=== PATIENT | female | born 1960 | race Asian ===

== ENCOUNTER 2020-12-18 22:41 | Emergency (ER) | payer OTHER ==
[~2020-12-18] VITALS: Ht 160 cm; Wt 54.4 kg
[2020-12-18 23:00] VITALS: BP_SYST 142
[2020-12-18] MEDS ORDERED: ASPIRIN 81 MG TAB.CHEW PO ONE (23:15)
[2020-12-18] MEDS ORDERED: NITROGLYCERIN 1 INCH (GM) OINT. TD ONE (23:15)
[2020-12-18 23:20] LABS: HEMOGLOBIN 13.7 g/dL (12.0-16.0); MEAN CORPUSCULAR VOLUME 99 fL (79.0-98.0)
[2020-12-18 23:34] LABS: BASOPHILS % (AUTO) 0.5 % (0.0-2.0); EOSINOPHILS # (AUTO) 0.1 K/uL (0.0-0.4); EOSINOPHILS % (AUTO) 1.9 % (0.0-4.0); HEMATOCRIT 40.1 % (36-48); LYMPHOCYTES # (AUTO) 2.3 K/uL (1.0-5.5); LYMPHOCYTES % (AUTO) 37.8 % (20.5-51.5); MEAN CORPUSCULAR HEMOGLOBIN 34 pg (27-31); MEAN CORPUSCULAR HGB CONC 34 % (32-36); MONOCYTES # (AUTO) 0.4 K/uL (0.0-1.0); MONOCYTES % (AUTO) 7.5 % (1.7-9.3); NEUTROPHILS # (AUTO) 3.1 K/uL (1.8-7.7); NEUTROPHILS % (AUTO) 52.3 % (40.0-70.0); PLATELET COUNT (AUTO) 249 K/uL (130-430); RED BLOOD CELL COUNT(AUTO) 4.06 MIL/uL (4.2-6.2); RED CELL DISTRIBUTION WIDTH 13.2 % (9.0-15.0)
[2020-12-18 23:40] LABS: CALCIUM 8.7 mg/dL (8.4-11.0); CREATININE 0.63 mg/dL (0.55-1.30); POTASSIUM 3.5 mmol/L (3.5-5.1)
[2020-12-18 23:46] LABS: ALBUMIN 3.7 g/dL (3.4-4.8); TOTAL BILIRUBIN 0.4 mg/dL (0.0-1.0)
[2020-12-19] MEDS ORDERED: ASPI-1457 PO (02:45)
[2020-12-19] MEDS ORDERED: NAPR-1169 PO (02:45)
[2020-12-19] MEDS ORDERED: NITSL SL (02:45)
[2020-12-19] MEDS ORDERED: GABA-529 PO (03:26)
[2020-12-19 04:01] VITALS: BP_SYST 120
== END 2020-12-19 03:50 | disposition home or self-care (01) ==
LOC: SED 22:41
DX: R07.89 Other chest pain (principal); I10 Essential (primary) hypertension; E11.9 Type 2 diabetes mellitus without complications
CPT/HCPCS: 36415; 71045; 80053; 83880; 84484; 85025; 85379; 93005; 99285